=== PATIENT | female | born 1970 | race African-American/Black ===

== ENCOUNTER 2018-06-21 17:16 | Inpatient (IN) | payer OTHER ==
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
[2018-06-21] MEDS ORDERED: MAGNESIUM CITRATE 300 ML BOTTLE PO PRN (21:14)
[2018-06-21] MEDS ORDERED: MAG HYDROX/AL HYDROX/SIMETH 30 ML UNIT-DOSE CUP PO PRN (21:14)
[2018-06-21] MEDS ORDERED: P-EPHED 60MG/TRIPROLIDI 2.5MG TABLET PO PRN (21:14)
[2018-06-21] MEDS ORDERED: guaiFENesin 200 MG/10 ML 10 ML UNIT-DOSE CUPS PO PRN (21:14)
[2018-06-21] MEDS ORDERED: hydrOXYzine PAMOATE 25 MG CAPSULE (FP) PO PRN (21:14)
[2018-06-21] MEDS ORDERED: MAGNESIUM HYDROX 2400MG/30ML ORAL SUSPENSION 30 ML CUP PO PRN (21:14)
[2018-06-21] MEDS ORDERED: LOPERAMIDE HCL 2 MG CAPSULE PO PRN (21:14)
[2018-06-21] MEDS ORDERED: ACETAMINOPHEN 325 MG TABLET (FP) PO PRN (21:14)
[2018-06-21] MEDS ORDERED: MENTHOL/PHENOL 1 EACH UD MM PRN (21:14)
[2018-06-21] MEDS ORDERED: IBUPROFEN 400 MG TABLET (FP) PO PRN (21:14)
[2018-06-21] MEDS ORDERED: MELATONIN 5 MG TABLETS PO PRN (22:00)
[2018-06-21] MEDS ORDERED: TUBERCULIN PPD 5 TU/0.1ML VIAL ID ONE (23:11)
[2018-06-21] MEDS: THIAMINE HCL 100 MG TABLET (FP) PO SCH (23:14)
[2018-06-22] MEDS: NICOTINE POLACRILEX 2 MG GUM BC PRN ×3 (08:02→17:26)
[2018-06-22] MEDS: PRENATAL VITAMINS W/ FOLIC ACID TABLET (FP) PO SCH (10:21)
[2018-06-22] MEDS: NICOTINE 14 MG/24 HOURS TOPICAL PATCH TD SCH (10:21)
--- NOTE | 2018-06-22 10:46 | CONSULT ---
[facility] Psychiatric Consult - Data Date of interview: 05/22/18 Admission source: [facility] Identifying data: Patient is a 47 year old female, but separted, unemployed, domiciled, and is supported by [employer]. This is patient's first admission to rehab at [facility]. Patient admitted to for marijuana and cocaine dependence. Substance Abuse History: Smoking Cessation. Smoking history: Current every day smoker. Have you smoked in the past 12 months: Yes. Aproximately how many cigarettes per day: 15. Hx Chewing Tobacco Use: No. Initiated information on smoking cessation: Yes. 'Breaking Loose' booklet given: 06/21/18. - Substance & Tx. History. Hx Alcohol Use: No. Hx Substance Use: Yes. Substance Use Type : Cocaine, Marijuana. Hx Substance Use Treatment: Yes (Last rehab [facility] 2011). - Substances abused. Crack. Substance route: Smoking. Frequency: Daily. Amount used: $60. Age of first use: 13 (using $60 per day for the past year ). Date of last use: 06/20/18. Marijuana/Hashish. Substance route: Smoking. Frequency: Daily. Amount used: $20. Age of first use: 13. Date of last use : 06/21/18 Medical History: Seizures, HIV, anemia, hypertension Psychiatric History: Patient's first psychiatric contact was in her 30's after she was admitted to [facility] for suicidal ideation. Patient is a poor historian and is unable to provide a cohesive psychiatric history. Ms. Latif reports h/o four five psychiatric hospitalizations, most recently ten years ago for depression at [facility]. States 4/5 hospitalizations occured at [facility]. Ms. Latif is receiving outpatient psychiatric care at "[facility]". She is unable to recall her psychotropic medications. Collaterol information obtained with patient's consent. Write able to speak to Larisa (patient's nurse) and was informed that patient is followed by the ACT Team and is provided with outpatient psychiatric care at " [facility]". As per Larisa, patient is prescribed Invega sustenna 117mg monthly. She received her Invega Sustenna on 06/21/18 before admitting self to [facility] rehab unit. Diagnosis of schizoaffective disorder. At present, patient denies auditory and visual halluincations. No manic, depressive, or psychotic symptoms noted, although patient is irritable and reports sleeping poorly last night. Physical/Sexual Abuse/Trauma History: denies. Mental Status Exam - Mental Status Exam Alert and Oriented to: Time, Place, Person Cognitive Function: Fair Patient Appearance: Unkempt Mood: Irritable Affect: Mood Congruent Patient Behavior: Appropriate Speech Pattern: Appropriate Voice Loudness: Normal Thought Process: Goal Oriented Thought Disorder: Not Present Hallucinations: Denies Suicidal Ideation: Denies Homicidal Ideation: Denies Insight/Judgement: Poor Sleep: Poorly Appetite: Fair Muscle strength/Tone: Normal Gait/Station: Other (Patient ambulates with a wheelchair) Psychiatric Findings - Problem List ([place] 1, 2,3) (1) Schizoaffective disorder Current Visit: Yes Status: Chronic (2) Cannabis dependence Current Visit: Yes Status: Acute (3) Cocaine dependence Current Visit: Yes Status: Acute (4) Nicotine dependence Current Visit: Yes Status: Acute Qualifiers: Nicotine product type: cigarettes - Initial Treatment Plan Initial Treatment Plan: Psychoeducation provided. Rehab in progress. [employer]iler able to contact patient's patient's pharmacy at and able to speak to the pharmacist. As per pharmacist patient is prescribed Invega sustenna 117mg montly + Gabapentin 300mg TID (script given 06/08)+ Cogentin 1mg BID ( script given 06/08). Patient has received risperdal 2mg and mirtzapine 15mg in the past (last script for risperdal and mirtzapine were on 04/10). Bo[employer] Pump Oiler able to contact Larisa (patient's nurse) at and was informed that patient received her Invega Sustenna on 06/21/18. Will order Gabapentin 300mg TID + Cogentine 1mg BID.
[2018-06-22 11:35] LABS: EPI CELLS 8.3 /HPF (0-5); PH,URINE 6.5 (5.0-8.0); URINE APPEARANCE CLOUDY; URINE BACTERIA 174.1 /hpf (NEGATIVE); URINE BILIRUBIN NEGATIVE (NEGATIVE); URINE CASTS 4 /hpf (0-8); URINE COLOR YELLOW; URINE GLUCOSE (UA) NEGATIVE (NEGATIVE); URINE KETONE TRACE (NEGATIVE); URINE LEUK ESTERASE 2+ (NEGATIVE); URINE NITRITE NEGATIVE (NEGATIVE); URINE PROTEIN 1+ (NEGATIVE); URINE RBC 1 /hpf (0-4); URINE WBC 11 /hpf (0-5)
[2018-06-22 11:36] LABS: HEMATOCRIT 38.6 % (32.4-45.2); HEMOGLOBIN 12.9 GM/dL (10.7-15.3); MCH 30.8 pg (25.7-33.7); MCHC 33.4 g/dl (32.0-36.0); MEAN CELL VOLUME 92.2 fl (80-96); MEAN PLT VOLUME 8.1 fl (7.5-11.1); PLATELET COUNT 336 K/MM3 (134-434); RBC 4.19 M/mm3 (3.60-5.2); RDW 14.1 % (11.6-15.6); WHITE BLOOD COUNT 5.6 K/mm3 (4.0-10.0)
[2018-06-22 11:45] LABS: ALBUMIN 2.8 g/dl (3.4-5.0); ALK PHOS 78 U/L (45-117); ANION GAP 8 MMOL/L (8-16); BILIRUBIN,TOTAL 0.1 mg/dL (0.2-1); BLOOD UREA NITROGEN 12 mg/dL (7-18); CALCIUM 8.6 mg/dL (8.5-10.1); CHLORIDE 114 mmol/L (98-107); CO2 20 mmol/L (21-32); CREATININE 1.2 mg/dL (0.55-1.3); GLUCOSE,RANDOM 108 mg/dL (74-106); POTASSIUM 3.2 mmol/L (3.5-5.1); SGOT/AST 45 U/L (15-37); SGPT/ALT 24 U/L (13-61); SODIUM 143 mmol/L (136-145); TOT PROT 7.1 g/dl (6.4-8.2)
[2018-06-22 12:23] LABS: URINE CRYSTALS CALCIUM OXALATE SEN /hpf
--- NOTE | 2018-06-22 13:29 | PN ---
[facility] Progress Note Note: Called pharmacy to confirm medications. Patient is not on enalpril, dilantin, Combivir, or Dyazide. Pharmacy confirmed that patient is on Amolodipine, HCTZ 25 mg, Keppra 500 mg BID, Valcyclovir 1,000mg twice ad day, and her HIV regimen is Truvada, Isentress, and Prezista. Patient is also on Respiradal 2mg. Medication orders updated to reflect the information received from the pharmacy.
--- NOTE | 2018-06-22 13:32 | PN ---
[facility] Progress Note (SOAP) Subjective: Patient has elevated BP, Objective: 06/22/18 13:30 Vital Signs - 24 hr 06/21/18 06/22/18 06/22/18 20:00 03:30 06:51 Temperature 96.4 F L 98 F Pulse Rate 86 72 Respiratory 18 16 16 Rate Blood Pressure 128/96 142/99 06/22/18 10:00 Temperature Pulse Rate 73 Respiratory 20 Rate Blood Pressure 153/105 H 06/22/18 13:30 Heart rate regular, S1S2 audible, lungs clear, no neurological deficits. Assessment: 06/22/18 13:31 HTN Plan: Medications confirmed; amlodipine and HCTZ started today, nursing aware.
[2018-06-22] MEDS: GABAPENTIN 300 MG CAPSULE (FP) PO SCH ×2 (13:51→22:10)
[2018-06-22] MEDS: amLODIPine BESYLATE 10 MG TABLET (FP) PO SCH (13:51)
--- NOTE | 2018-06-22 14:46 | EKG ---
Test Reason : Blood Pressure : / mmHG Vent. Rate : 069 BPM Atrial Rate : 069 BPM P-R Int : 160 ms QRS Dur : 094 ms QT Int : 458 ms P-R-T Axes : 010 062 057 degrees QTc Int : 490 ms NORMAL SINUS RHYTHM SEPTAL INFARCT , AGE UNDETERMINED ABNORMAL ECG NO PREVIOUS ECGS AVAILABLE Confirmed by Pola Hammonds ([id number]) on 06/22/2018 2:45:50 PM Referred By: Confirmed By:Pola Hammonds
[2018-06-22] MEDS: THIAMINE HCL 100 MG TABLET (FP) PO SCH (22:10)
[2018-06-22] MEDS: BENZTROPINE MESYLATE 1 MG TABLET (FP) PO SCH (22:11)
[2018-06-22] MEDS: valACYclovir HCL 500 MG TABLET (FP) PO SCH (22:11)
[2018-06-22] MEDS: levETIRAcetam 500 MG TABLET (FP) PO SCH (22:11)
[2018-06-23] MEDS: GABAPENTIN 300 MG CAPSULE (FP) PO SCH ×3 (07:09→23:13)
[2018-06-23] MEDS: NICOTINE POLACRILEX 2 MG GUM BC PRN (10:55)
[2018-06-23] MEDS: NICOTINE 14 MG/24 HOURS TOPICAL PATCH TD SCH (10:55)
[2018-06-23] MEDS: valACYclovir HCL 500 MG TABLET (FP) PO SCH ×2 (10:55→23:13)
[2018-06-23] MEDS: amLODIPine BESYLATE 10 MG TABLET (FP) PO SCH (10:55)
[2018-06-23] MEDS: HYDROCHLOROTHIAZIDE 25 MG TABLET (FP) PO SCH (10:55)
[2018-06-23] MEDS: levETIRAcetam 500 MG TABLET (FP) PO SCH ×2 (10:55→23:13)
[2018-06-23] MEDS: BENZTROPINE MESYLATE 1 MG TABLET (FP) PO SCH ×2 (10:55→23:14)
[2018-06-23] MEDS: PRENATAL VITAMINS W/ FOLIC ACID TABLET (FP) PO SCH (10:55)
--- NOTE | 2018-06-23 15:29 | PN ---
S Progress Note Note: Client reports that she has not taken her HIV medications for at least 2 months. Advised client to see her HIV specialist upon discharge to re-start HIV medications.
[2018-06-23] MEDS ORDERED: POTASSIUM CHLORIDE ORAL LIQUID 20 MEQ/15 ML PO SCH (22:00)
[2018-06-23] MEDS: THIAMINE HCL 100 MG TABLET (FP) PO SCH (23:15)
[2018-06-23] MEDS: POTASSIUM CHLORIDE ORAL LIQUID 20 MEQ/15 ML PO SCH (23:16)
[2018-06-23] MEDS ORDERED: PT OWN MED DRAWER 7, Y5N ONE (23:17)
[2018-06-24] MEDS: GABAPENTIN 300 MG CAPSULE (FP) PO SCH ×3 (06:57→21:46)
[2018-06-24] MEDS: NICOTINE POLACRILEX 2 MG GUM BC PRN ×3 (06:57→13:58)
[2018-06-24] MEDS ORDERED: PT OWN MED DRAWER 7, Y5N ONE (08:56)
[2018-06-24] MEDS: amLODIPine BESYLATE 10 MG TABLET (FP) PO SCH (10:47)
[2018-06-24] MEDS: PRENATAL VITAMINS W/ FOLIC ACID TABLET (FP) PO SCH (10:47)
[2018-06-24] MEDS: levETIRAcetam 500 MG TABLET (FP) PO SCH ×2 (10:47→21:46)
[2018-06-24] MEDS: valACYclovir HCL 500 MG TABLET (FP) PO SCH ×2 (10:48→21:46)
[2018-06-24] MEDS: BENZTROPINE MESYLATE 1 MG TABLET (FP) PO SCH ×2 (10:48→21:46)
[2018-06-24] MEDS: POTASSIUM CHLORIDE ORAL LIQUID 20 MEQ/15 ML PO SCH ×2 (10:48→21:47)
[2018-06-24] MEDS: HYDROCHLOROTHIAZIDE 25 MG TABLET (FP) PO SCH (10:48)
[2018-06-24] MEDS: NICOTINE 14 MG/24 HOURS TOPICAL PATCH TD SCH (10:49)
[2018-06-24] MEDS: THIAMINE HCL 100 MG TABLET (FP) PO SCH (21:46)
[2018-06-25] MEDS: GABAPENTIN 300 MG CAPSULE (FP) PO SCH ×3 (07:43→22:15)
[2018-06-25] MEDS: NICOTINE POLACRILEX 2 MG GUM BC PRN ×2 (07:45→14:36)
[2018-06-25] MEDS: valACYclovir HCL 500 MG TABLET (FP) PO SCH ×2 (11:10→22:15)
[2018-06-25] MEDS: amLODIPine BESYLATE 10 MG TABLET (FP) PO SCH (11:10)
[2018-06-25] MEDS: HYDROCHLOROTHIAZIDE 25 MG TABLET (FP) PO SCH (11:10)
[2018-06-25] MEDS: NICOTINE 14 MG/24 HOURS TOPICAL PATCH TD SCH (11:10)
[2018-06-25] MEDS: PRENATAL VITAMINS W/ FOLIC ACID TABLET (FP) PO SCH (11:10)
[2018-06-25] MEDS: levETIRAcetam 500 MG TABLET (FP) PO SCH ×2 (11:11→22:16)
[2018-06-25] MEDS: BENZTROPINE MESYLATE 1 MG TABLET (FP) PO SCH ×2 (11:11→22:15)
[2018-06-25] MEDS: THIAMINE HCL 100 MG TABLET (FP) PO SCH (22:15)
[2018-06-26] MEDS: GABAPENTIN 300 MG CAPSULE (FP) PO SCH ×2 (07:59→14:02)
[2018-06-26] MEDS ORDERED: levETIRAcetam 500 MG TABLET (FP) PO ONE (09:06)
--- NOTE | 2018-06-26 09:06 | PN ---
[facility] Progress Note Note: Patient with sub-therapeutic keppra level; 7.5L.She was admitted on 06/21, noted to be non-compliant with medication while she was in the community. This accounts for low serum level of keppra. Patient is currently taking medication as ordered, levels potentially to reach therapeutic level. Plan Give extra dose of keppra 500mg x 1 Continue 500mg BID Repeat level on 07/01
[2018-06-26] MEDS: PRENATAL VITAMINS W/ FOLIC ACID TABLET (FP) PO SCH (09:12)
[2018-06-26] MEDS: HYDROCHLOROTHIAZIDE 25 MG TABLET (FP) PO SCH (09:12)
[2018-06-26] MEDS: valACYclovir HCL 500 MG TABLET (FP) PO SCH (09:12)
[2018-06-26] MEDS: levETIRAcetam 500 MG TABLET (FP) PO SCH (09:12)
[2018-06-26] MEDS: BENZTROPINE MESYLATE 1 MG TABLET (FP) PO SCH (09:12)
[2018-06-26] MEDS: amLODIPine BESYLATE 10 MG TABLET (FP) PO SCH (09:12)
[2018-06-26] MEDS: NICOTINE 14 MG/24 HOURS TOPICAL PATCH TD SCH (09:13)
[2018-06-26] MEDS ORDERED: LORazepam 2 MG/ML SDV VIAL ONE (12:28)
--- NOTE | 2018-06-26 12:40 | PN ---
[facility] Progress Note Note: Rapid response called s/p pt having numerous seizures. Arrived to see pt alert but post-ictal, no signs of injury, breathing unlabored. Pt had another seizure episode when this provider arrived to unit (TOTAL - 4). FS -96mg/dl, Bp -143/81, HR- 89. T - 97.9F, O2 sat - 96%. Ativan 1mg given. Pt will be transferred to [facility] ED, report given to Dr Saeed. Nursing staff aware.
--- NOTE | 2018-06-26 13:03 | PN ---
S Progress Note Note: Patient is referred for multiple seizure activities-(6) Last episode while EMS personal present and taking vital signs. Seizures 5 mns apart, lasts approximately 30 seconds, no incontinence or loss of consciousness. Patient with diagnosis of seizure disorder, non-compliant with medication. She received 1000mg of Keppra this morning. Vital Signs Period Temp Pulse Resp BP Sys/[place] Pulse Ox Last 24 Hr 97.3 F 72-78 16-18 113-136/68-91 PE Alert to self, responsive, follows simple command, reports thirst. Lungs CTA, no dyspnea Plan-Transfer to ED for further evaluation Ativan 1mg IM given
[2018-06-26 13:51] VITALS: BP 143/81; PULSE 84; TEMP 97.8
== END 2018-06-26 23:01 | disposition short-term general hospital (02) | DRG 772 ==
LOC: YASAS 17:16 → Y3E 22:09
PROVIDERS: ADMIT Neuromusculoskeletal Medicine & OMM; ATTEND Neuromusculoskeletal Medicine & OMM
PROC: HZ42ZZZ Group Counseling for Substance Abuse Treatment, Cognitive-Behavioral (ICD-10-PCS; principal; 2018-06-21)
DX: F14.20 Cocaine dependence, uncomplicated (principal); F12.20 Cannabis dependence, uncomplicated; F17.210 Nicotine dependence, cigarettes, uncomplicated; F25.9 Schizoaffective disorder, unspecified; F32.9 Major depressive disorder, single episode, unspecified; F03.90 Unspecified dementia, unspecified severity, without behavioral disturbance, psychotic disturbance, mood disturbance, and anxiety; Z21 Asymptomatic human immunodeficiency virus [HIV] infection status; I10 Essential (primary) hypertension; D64.9 Anemia, unspecified; G40.909 Epilepsy, unspecified, not intractable, without status epilepticus; Z91.14 Patient's other noncompliance with medication regimen; S80.212A Abrasion, left knee, initial encounter; S80.211A Abrasion, right knee, initial encounter; W18.39XA Other fall on same level, initial encounter; Y93.89 Activity, other specified; Y92.488 Other paved roadways as the place of occurrence of the external cause; Y99.8 Other external cause status
CPT/HCPCS: 36415; 80053; 80177; 81003; 82962; 85027; 86593; 93005; 93010

== ENCOUNTER 2018-06-26 13:27 | Observation (INO) | payer OTHER ==
[2018-06-26 13:45] VITALS: BMI 24.7
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
[2018-06-26 14:58] LABS: BASO % 1.1 % (0-2.0); EOS % 2.6 % (0-4.5); HEMATOCRIT 37.6 % (32.4-45.2); HEMOGLOBIN 12.7 GM/dL (10.7-15.3); LYMPH % 25.2 % (8-40); MCH 30.6 pg (25.7-33.7); MCHC 33.7 g/dl (32.0-36.0); MEAN PLT VOLUME 7.3 fl (7.5-11.1); NEUT % 61.1 % (42.8-82.8); PLATELET COUNT 317 K/MM3 (134-434); RBC 4.14 M/mm3 (3.60-5.2); RDW 13.9 % (11.6-15.6); WHITE BLOOD COUNT 6.7 K/mm3 (4.0-10.0)
--- NOTE | 2018-06-26 15:01 | PDOC ---
Attending Attestation - HPI HPI: The patient is a 47 year old female, with a significant PMH of HIV, seizure disorder (controlled on Keppra), HTN, depression, dementia, anemia, and neuropathy, who presents to the emergency department today BIBEMS s/p 5 tonic clonic seizures today. As per EMS, patient has had 5 witnessed seizures throughout the day, with diffuse body shaking. They report that she was given Ativan from [facility] prior to their arrival, and her seizures subsided after administering Versed.Patient reports weakness in bilateral upper and lower extremities. Patient denies falls or head contusions during the episodes. She also endorses 2 episodes of NBNB vomit yesterday, with residual nausea today. The patient denies chest pain, shortness of breath, headache and dizziness. Denies fever, chills, diarrhea and constipation. Denies dysuria, frequency, urgency and hematuria. Allergies: NKA Past surgical history: Bilateral feet orthopedic surgery, left knee surgery, and right inguinal hernia repair Social history: Patient reports using marijuana and cocaine one week ago. Denies EtOH use. PCP: Dr. Macey Leo 06/26/18 16:52 - Physicial Exam PE: GENERAL: +Lethargic. Awake, alerted, and oriented. The patient is in no acute distress. HEAD: Normal with no signs of trauma. EYES: PERRLA, EOMI, sclera anicteric, conjunctiva clear. ENT: +Small laceration to the left lateral lower lip. Ears normal, nares patent , oropharynx clear without exudates. Moist mucous membranes. NECK: Normal range of motion, supple without lymphadenopathy, JVD, or masses. LUNGS: Breath sounds equal, clear to auscultation bilaterally. No wheezes, and no crackles. HEART:Regular rate and rhythm, normal S1 and S2 without murmur, rub or gallop. ABDOMEN: Soft, nontender, normoactive bowel sounds. No guarding, no rebound. No masses palpable. EXTREMITIES: Normal range of motion, no edema. No clubbing or cyanosis. No erythema, or tenderness. NEUROLOGICAL: +Lethargic. Cranial nerves II through XII grossly intact. Normal speech. No focal neurological deficits. MUSCULOSKELETAL: Back non-tender to palpation, no CVA tenderness SKIN: Warm, Dry, normal turgor, no rashes or lesions noted. 06/26/18 16:52 - Medical Decision Making EXAM#: TYPE/EXAM: RESULT: [id number] CT/HEAD CT WITHOUT CONTRAST Change in mental status. Headaches. IMPRESSION: [id number] volume loss without CT evidence of acute intracranial pathology. Left sphenoid chronic sinusitis. Reported By: Francisco Javier Freeman MD 06/26/18 15:59 Documentation prepared by SYLVIE Boss, acting as medical communication specialist for Maria D Saeed MD. 06/26/18 16:26 <Lillian Patterson - Last Filed: 06/26/18 16:52> - Resident Resident Name: Jones Bishop - ED Attending Attestation I have performed the following: I have examined & evaluated the patient, The case was reviewed & discussed with the resident, I agree w/resident's findings & plan, Exceptions are as noted - Medical Decision Making 06/26/18 17:21 EKG - Twelve-lead EKG was performed and reviewed by me. There is normal sinus rhythm with a normal rate. The axis is normal. The intervals are normal. There are no ST or T wave abnormalities. Impression: Normal twelve-lead EKG 47 yo F presenting to the ER due to seizure Pt reportedly had seizure x 4 in the Detox center and 1 seizure en route to the ER Given Ativan and Versed Pt post ictal initially Pt awake now Will do labs Will plan to admit 06/26/18 17:32 Laboratory Tests 06/26/18 06/26/18 06/26/18 14:45 14:45 14:45 WBC 6.7 Hgb 12.7 Hct 37.6 Plt Count 317 INR 0.89 BUN 20 H Creatinine 0.9 Ammonia Creatine Kinase 72 Troponin I < 0.02 06/26/18 14:45 WBC Hgb Hct Plt Count INR BUN Creatinine Ammonia 17.00 Creatine Kinase Troponin I ? Status epilepticus Will plan to admit Can be returned to [facility] once stable <Maria D Saeed - Last Filed: 06/30/18 13:57>
[2018-06-26 15:12] LABS: INR 0.89 (0.83-1.09); PROTHROMBIN TIME (PATIENT) 10.5 SEC (9.7-13.0)
[2018-06-26 15:13] LABS: ALBUMIN 2.6 g/dl (3.4-5.0); ALK PHOS 76 U/L (45-117); ANION GAP 5 MMOL/L (8-16); BILIRUBIN,TOTAL 0.1 mg/dL (0.2-1); BLOOD UREA NITROGEN 20 mg/dL (7-18); CALCIUM 8.9 mg/dL (8.5-10.1); CHLORIDE 110 mmol/L (98-107); CO2 24 mmol/L (21-32); CREATININE 0.9 mg/dL (0.55-1.3); GLUCOSE,RANDOM 97 mg/dL (74-106); SGOT/AST 26 U/L (15-37); SGPT/ALT 22 U/L (13-61); SODIUM 139 mmol/L (136-145); TOT PROT 6.8 g/dl (6.4-8.2)
[2018-06-26] MEDS ORDERED: levETIRAcetam 500 MG/5 ML INJECTION VIAL IVPB ONE ×2 (16:50→16:57)
[2018-06-26 18:22] LABS: COCAINE, UR NEGATIVE ng/ml (CUTOFF=300); METHADONE, UR NEGATIVE ng/ml (CUTOFF=300); OPIATES, URI NEGATIVE ng/ml (CUTOFF=300); PHENCYCLIDINE,URINE NEGATIVE ng/ml (CUTOFF=25); URINE AMPHETAMINES NEGATIVE ng/ml (CUTOFF=500); URINE BARBITURATES NEGATIVE ng/ml (CUTOFF=200)
[2018-06-26 18:24] LABS: URINE BENZODIAZEPINES POSITIVE ng/ml (CUTOFF=200)
--- NOTE | 2018-06-26 18:40 | HP ---
CHIEF COMPLAINT: PCP: HISTORY OF PRESENT ILLNESS: ER course was notable for: (1) (2) (3) Recent Travel: PAST MEDICAL HISTORY: PAST SURGICAL HISTORY: Social History: Smoking: Alcohol: Drugs: Family History: Allergies No Known Allergies Allergy (Verified 06/21/18 21:56) HOME MEDICATIONS: Home Medications Medication Instructions Recorded SEROquel 200 mg PO HS 07/24/11 Enalapril Maleate [Vasotec -] 10 mg PO DAILY #0 tablet 08/19/11 Enalapril Maleate [Vasotec -] 20 mg PO BID #0 tablet 08/19/11 Fluconazole [Diflucan -] 100 mg PO DAILY #0 tablet 08/19/11 Hctz 25Mg/Triamterene [Dyazide 1 cap PO DAILY #0 capsule 08/19/11 25/37.5 -] Lamivudine/Zidovudine 150/300 1 combo PO BID #0 tablet 08/19/11 [Combivir Tablet 150/300 -] Norvir 100 mg PO DAILY #0 08/19/11 Phenytoin Sodium Extended 100 mg PO QID #0 capsule 08/19/11 [Dilantin] Valacyclovir HCl [Valacyclovir] 500 mg PO BID #0 tablet 08/19/11 Benztropine Mesylate [Cogentin -] 1 mg PO BID 06/22/18 Gabapentin [Neurontin -] 300 mg PO TID 06/22/18 REVIEW OF SYSTEMS CONSTITUTIONAL: Absent: fever, chills, diaphoresis, generalized weakness, malaise, loss of appetite, weight change HEENT: Absent: rhinorrhea, nasal congestion, throat pain, throat swelling, difficulty swallowing, mouth swelling, ear pain, eye pain, visual changes CARDIOVASCULAR: Absent: chest pain, syncope, palpitations, irregular heart rate, lightheadedness , peripheral edema RESPIRATORY: Absent: cough, shortness of breath, dyspnea with exertion, orthopnea, wheezing, stridor, hemoptysis GASTROINTESTINAL: Absent: abdominal pain, abdominal distension, nausea, vomiting, diarrhea, constipation, melena, hematochezia GENITOURINARY: Absent: dysuria, frequency, urgency, hesitancy, hematuria, flank pain, genital pain MUSCULOSKELETAL: Absent: myalgia, arthralgia, joint swelling, back pain, neck pain SKIN: Absent: rash, itching, pallor HEMATOLOGIC/IMMUNOLOGIC: Absent: easy bleeding, easy bruising, lymphadenopathy, frequent infections ENDOCRINE: Absent: unexplained weight gain, unexplained weight loss, heat intolerance, cold intolerance NEUROLOGIC: Absent: headache, focal weakness or paresthesias, dizziness, unsteady gait, seizure, mental status changes, bladder or bowel incontinence PSYCHIATRIC: Absent: anxiety, depression, suicidal or homicidal ideation, hallucinations. PHYSICAL EXAMINATION Vital Signs 06/26/18 13:34 Temperature 99.1 F Pulse Rate 74 Respiratory 18 Rate Blood Pressure 115/80 O2 Sat by Pulse 97 Oximetry (%) GENERAL: NAD, awake, alert, and fully oriented HEENT: NC/AT, MARIE, EOMI, sclera anicteric, abraision to L lower lip noted healing w/o signs of infection, no thrush or other plaques noted in oropharynx, no mucosal ulcerations, MMM NECK: No JVD LUNGS: CTA bilaterally. No wheezes, and no crackles. No accessory muscle use. HEART: RRR, normal S1 and S2 without murmur ABDOMEN: Soft, NT/ND, normoactive bowel sounds, no guarding, no rebound MUSCULOSKELETAL: No CVA tenderness. No spinal TTP EXTREMITIES: 2+ DP, pulses, warm, well-perfused. No calf tenderness. No peripheral edema. abrasions to b/l knees healing at this point w/o infections NEUROLOGICAL: customer services manager II-XII intact. No nystagmus. Strength 5/5 bilaterally throughout upper and lower extremity beck. Sensation intact to both dull and sharp touch in b/l extremities. Normal speech. Gait not observed PSYCHIATRIC: Cooperative. Good eye contact. Appropriate mood and affect. SKIN: Warm, dry,no rashes, abrasions as above, Laboratory Results 06/26/18 06/26/18 06/26/18 14:45 14:45 14:45 WBC 6.7 RBC 4.14 Hgb 12.7 Hct 37.6 MCV 91.0 MCH 30.6 MCHC 33.7 RDW 13.9 Plt Count 317 MPV 7.3 L Absolute Neuts (auto) 4.1 Neutrophils % 61.1 Lymphocytes % 25.2 Monocytes % 10.0 Eosinophils % 2.6 Basophils % 1.1 Nucleated RBC % 0 PT with INR 10.50 INR 0.89 Sodium 139 Potassium 4.0 Chloride 110 H Carbon Dioxide 24 Anion Gap 5 L BUN 20 H Creatinine 0.9 Creat Clearance w eGFR 66.55 Random Glucose 97 Lactic Acid Calcium 8.9 Total Bilirubin 0.1 L AST 26 ALT 22 Alkaline Phosphatase 76 Ammonia Creatine Kinase 72 Troponin I < 0.02 Total Protein 6.8 Albumin 2.6 L Opiates Screen Methadone Screen Barbiturate Screen Phencyclidine Screen Ur Amphetamines Screen MDMA (Ecstasy) Screen Benzodiazepines Screen Cocaine Screen U Marijuana (THC) Screen Blood Type Antibody Screen 06/26/18 06/26/18 06/26/18 14:45 14:45 15:07 WBC RBC Hgb Hct MCV MCH MCHC RDW Plt Count MPV Absolute Neuts (auto) Neutrophils % Lymphocytes % Monocytes % Eosinophils % Basophils % Nucleated RBC % PT with INR INR Sodium Potassium Chloride Carbon Dioxide Anion Gap BUN Creatinine Creat Clearance w eGFR Random Glucose Lactic Acid 1.0 Calcium Total Bilirubin AST ALT Alkaline Phosphatase Ammonia 17.00 Creatine Kinase Troponin I Total Protein Albumin Opiates Screen Methadone Screen Barbiturate Screen Phencyclidine Screen Ur Amphetamines Screen MDMA (Ecstasy) Screen Benzodiazepines Screen Cocaine Screen U Marijuana (THC) Screen Blood Type O POSITIVE Antibody Screen Negative 06/26/18 17:49 WBC RBC Hgb Hct MCV MCH MCHC RDW Plt Count MPV Absolute Neuts (auto) Neutrophils % Lymphocytes % Monocytes % Eosinophils % Basophils % Nucleated RBC % PT with INR INR Sodium Potassium Chloride Carbon Dioxide Anion Gap BUN Creatinine Creat Clearance w eGFR Random Glucose Lactic Acid Calcium Total Bilirubin AST ALT Alkaline Phosphatase Ammonia Creatine Kinase Troponin I Total Protein Albumin Opiates Screen Negative Methadone Screen Negative Barbiturate Screen Negative Phencyclidine Screen Negative Ur Amphetamines Screen Negative MDMA (Ecstasy) Screen Negative Benzodiazepines Screen Positive A* Cocaine Screen Negative U Marijuana (THC) Screen Negative Blood Type Antibody Screen ASSESSMENT/PLAN: ? tonic-clonic seizure with known seizure history Polysubstance abuse HIV HTN Schizoaffective disorder --Given CK of 72 and LA of 1.0 unsure if true seizures --Head CT reviewed: w/o acute abnormalities --Will place in observation for 24hr monitoring --Seizure precautions in place --Keppra load (1g) in ED; continue 500mg BID dosing --Keppra level in AM --Consult neurology re: possible MRI vs. EEG vs. observation on home regiment --Based on [facility] notes, will monitor for withdrawal signs --Utox only positive for Benzodiazepines (given today at [facility] and EMS en route) --Continue HCTZ 25mg daily and Norvasc 10mg daily for HTN --Well controlled currently --Continue Gabapentin 200mg TID for neuropathy symptoms --Reports she takes her medications everyday, pharmacy closed --Will order Truvada, Isentress, and Prezista 600mg BID PO as per her HIV regiment --Nicotine patch 14 daily ordered --Melatonin PRN ordered --Based on psychiatry consult at [facility] will start Risperidone 2mg daily and Cogentin 1mg BID FEN: Fluids: None indicated Electrolyte abnormalities: None Nutrition: Regular diet PPX: DVT - Low risk Dispo: Place in observation Case discussed with Dr. Brittni Mojica, DO - IM PGY-2
[2018-06-26 18:43] LABS: URINE APPEARANCE CLEAR; URINE BILIRUBIN NEGATIVE (NEGATIVE); URINE COLOR YELLOW; URINE GLUCOSE (UA) NEGATIVE (NEGATIVE); URINE KETONE NEGATIVE (NEGATIVE); URINE LEUK ESTERASE NEGATIVE (NEGATIVE); URINE NITRITE NEGATIVE (NEGATIVE); URINE PROTEIN NEGATIVE (NEGATIVE); URINE UROBILINOGEN 0.2 mg/dL (0.2-1.0)
[2018-06-26] MEDS ORDERED: MELATONIN 5 MG TABLETS PO PRN (18:43)
--- NOTE | 2018-06-26 19:22 | PN ---
Teaching Attending Note Name of Resident: Russ Mojica ATTENDING PHYSICIAN STATEMENT I saw and evaluated the patient. I reviewed the resident's note and discussed the case with the resident. I agree with the resident's findings and plan as documented. SUBJECTIVE: CC: seizures HPI: 47 y/o lady with h/o seizure disorder, schizoaffective Do, depression, psych hospitalizations in past, HTN,HIV on HAART, polysubstance abuse, who presented with seizures from [facility] . she reports having seizures, she felt them coming, she reports she was unconscious but was told she had seizures. it is not clear, per report from ER and per [facility] notes she had a seizure while at the table, then had another one . seizure subsided when EMS gave versed. ativan was given at [facility]. she says has a seizure once a week . she insists she takes dilantin, but per [facility] notes, her meds were confirmed withher pharmacy and keppra was the only seizure medication. she denies having a neurologist and her HIV Md prescribes her meds. she denies any fever or chills. has no ALEXANDRE, no weakness, no tingling, has o dysuria, or diarrhea, no abd apin, no PC or SOB. she reports falling a week ago sliding form her wheel chair. she can't walk due to L knee Fx. ( a year ago). OBJECTIVE: NAD, awake, alert, not very cooperative. HEENT : poor dentition, many missing teeth, MMM, no facial droop. no LAP in neck . scar on L upper lip Cv: RRR, 2/6 SM at base . Abd:soft , NT, ND , NL BS . patient refused rest of exam claiming she could not move. ASSESSMENT AND PLAN: 47 y/o lady with h/o seizure disorder, schizoaffective Do, depression, psych hospitalizations in past, HTN ,HIV on HAART, polysubstance abuse, who presented with seizures from [facility] . 1- Seizures: por historian and little details were collected, but apparently she had at least 2 seizures. ? real vs pseudoseisures - questionable compliance as her keppra level was low on 06/23 - loaded with Keppra in the ER at 5 pm - will resume her po keppra 500 BID in am - neuro consult - further Recs. - no signs of infection 2- HIV: she reports being compliant with HIV meds and mentioned the names correctly - resume Isentress, truvada, Acyclovir, prezista. 3- HTN: cont norvasc and HCTZ. 4- Polysubstance abuse: no signs of withdrawal. per [facility] records , she was not being givenany specific treatment . 5- Schizoaffective disorder. cont respirdal and cogentin she received her Invega on 06/21 ( monthly ) dispo ; observe pending neuro consult
[2018-06-26] MEDS ORDERED: valACYclovir HCL 500 MG TABLET (FP) PO SCH (22:00)
[2018-06-26] MEDS ORDERED: levETIRAcetam 500 MG TABLET (FP) PO SCH (22:00)
[2018-06-26] MEDS: RALTEGRAVIR POTASSIUM 400 MG TAB PO SCH (22:57)
[2018-06-26] MEDS: GABAPENTIN 300 MG CAPSULE (FP) PO SCH (22:57)
[2018-06-26] MEDS: BENZTROPINE MESYLATE 1 MG TABLET (FP) PO SCH (22:57)
[2018-06-26] MEDS: valACYclovir HCL 1000 MG TABLET PO SCH (22:57)
[2018-06-27] MEDS ORDERED: GABAPENTIN 100 MG CAPSULE (FP) ONE (06:49)
[2018-06-27] MEDS: GABAPENTIN 300 MG CAPSULE (FP) PO SCH ×3 (07:01→21:59)
[2018-06-27] MEDS: EMTRICITABINE 200MG/TENOFOVIR 300MG PO SCH (09:50)
[2018-06-27] MEDS: valACYclovir HCL 1000 MG TABLET PO SCH ×2 (09:50→22:00)
[2018-06-27] MEDS: DARUNAVIR ETHANOLATE 600 MG TAB PO SCH ×2 (09:50→17:14)
[2018-06-27] MEDS: BENZTROPINE MESYLATE 1 MG TABLET (FP) PO SCH ×2 (09:50→22:01)
[2018-06-27] MEDS: RALTEGRAVIR POTASSIUM 400 MG TAB PO SCH ×2 (09:50→22:00)
[2018-06-27] MEDS: amLODIPine BESYLATE 10 MG TABLET (FP) PO SCH (09:50)
[2018-06-27] MEDS: HYDROCHLOROTHIAZIDE 25 MG TABLET (FP) PO SCH (09:50)
[2018-06-27] MEDS ORDERED: levETIRAcetam 500 MG TABLET (FP) PO SCH (10:00)
[2018-06-27] MEDS ORDERED: NICOTINE 14 MG/24 HOURS TOPICAL PATCH TD SCH (10:00)
[2018-06-27] MEDS ORDERED: risperiDONE 2 MG TABLET PO SCH (10:00)
--- NOTE | 2018-06-27 14:24 | PN ---
Progress Note (short form) - Note Progress Note: Subjective: declined exam and interview. wants to go back [facility] [place] Objective: Vital Signs: Last Vital Signs Temp Pulse Resp BP Pulse Ox 98.2 F 62 17 125/81 98 06/27/18 09:36 06/27/18 09:36 06/27/18 09:36 06/27/18 09:36 06/27/18 11:06 Laboratory Results - last 24 hr 06/26/18 06/26/18 06/26/18 14:45 14:45 14:45 WBC 6.7 RBC 4.14 Hgb 12.7 Hct 37.6 MCV 91.0 MCH 30.6 MCHC 33.7 RDW 13.9 Plt Count 317 MPV 7.3 L Absolute Neuts (auto) 4.1 Neutrophils % 61.1 Lymphocytes % 25.2 Monocytes % 10.0 Eosinophils % 2.6 Basophils % 1.1 Nucleated RBC % 0 PT with INR 10.50 INR 0.89 Sodium 139 Potassium 4.0 Chloride 110 H Carbon Dioxide 24 Anion Gap 5 L BUN 20 H Creatinine 0.9 Creat Clearance w eGFR 66.55 Random Glucose 97 Lactic Acid Calcium 8.9 Total Bilirubin 0.1 L AST 26 ALT 22 Alkaline Phosphatase 76 Ammonia Creatine Kinase 72 Troponin I < 0.02 Total Protein 6.8 Albumin 2.6 L Urine Color Urine Appearance Urine pH Ur Specific [place] Urine Protein Urine Glucose (UA) Urine Ketones Urine Blood Urine Nitrite Urine Bilirubin Urine Urobilinogen Ur Leukocyte Esterase Opiates Screen Methadone Screen Barbiturate Screen Phencyclidine Screen Ur Amphetamines Screen MDMA (Ecstasy) Screen Benzodiazepines Screen Cocaine Screen U Marijuana (THC) Screen Blood Type Antibody Screen 06/26/18 06/26/18 06/26/18 14:45 14:45 15:07 WBC RBC Hgb Hct MCV MCH MCHC RDW Plt Count MPV Absolute Neuts (auto) Neutrophils % Lymphocytes % Monocytes % Eosinophils % Basophils % Nucleated RBC % PT with INR INR Sodium Potassium Chloride Carbon Dioxide Anion Gap BUN Creatinine Creat Clearance w eGFR Random Glucose Lactic Acid 1.0 Calcium Total Bilirubin AST ALT Alkaline Phosphatase Ammonia 17.00 Creatine Kinase Troponin I Total Protein Albumin Urine Color Urine Appearance Urine pH Ur Specific [place] Urine Protein Urine Glucose (UA) Urine Ketones Urine Blood Urine Nitrite Urine Bilirubin Urine Urobilinogen Ur Leukocyte Esterase Opiates Screen Methadone Screen Barbiturate Screen Phencyclidine Screen Ur Amphetamines Screen MDMA (Ecstasy) Screen Benzodiazepines Screen Cocaine Screen U Marijuana (THC) Screen Blood Type O POSITIVE Antibody Screen Negative 06/26/18 06/26/18 17:49 17:49 WBC RBC Hgb Hct MCV MCH MCHC RDW Plt Count MPV Absolute Neuts (auto) Neutrophils % Lymphocytes % Monocytes % Eosinophils % Basophils % Nucleated RBC % PT with INR INR Sodium Potassium Chloride Carbon Dioxide Anion Gap BUN Creatinine Creat Clearance w eGFR Random Glucose Lactic Acid Calcium Total Bilirubin AST ALT Alkaline Phosphatase Ammonia Creatine Kinase Troponin I Total Protein Albumin Urine Color Yellow Urine Appearance Clear Urine pH 7.0 Ur Specific [place] 1.013 Urine Protein Negative Urine Glucose (UA) Negative Urine Ketones Negative Urine Blood Negative Urine Nitrite Negative Urine Bilirubin Negative Urine Urobilinogen 0.2 Ur Leukocyte Esterase Negative Opiates Screen Negative Methadone Screen Negative Barbiturate Screen Negative Phencyclidine Screen Negative Ur Amphetamines Screen Negative MDMA (Ecstasy) Screen Negative Benzodiazepines Screen Positive A* Cocaine Screen Negative U Marijuana (THC) Screen Negative Blood Type Antibody Screen Physical Exam: declined ASSESSMENT AND PLAN: 47 y/o lady with h/o seizure disorder, schizoaffective Do, depression, psych hospitalizations in past, HTN ,HIV on HAART, polysubstance abuse, who presented with seizures from [facility] . 1- Seizures: ? real vs pseudoseisures - questionable compliance as her keppra level was low on 06/23 - neuro called and ordered keppra 750 BID. she will be evaluated tomorrow. - psych consult ordered by neuro. she was evaluated by psych at [facility] 2 days prior to admission 2- HIV: cont Isentress, truvada, Acyclovir, prezista. 3- HTN: cont norvasc and HCTZ. 4- Polysubstance abuse: no signs of withdrawal. 5- Schizoaffective disorder. cont respirdal and cogentin she received her Invega on 06/21 ( monthly ) dispo ; need neuro eval. inmean time she can leave AMA . she is capable of making decisions. she understands that seizures can be deadly Visit type - Emergency Visit Emergency Visit: Yes ED Registration Date: 06/26/18 Care time: The patient presented to the Emergency Department on the above date and was hospitalized for further evaluation of their emergent condition. - New Patient This patient is new to me today: No - Critical Care Critical Care patient: No
[2018-06-27] MEDS: NICOTINE POLACRILEX 2 MG GUM BUC PRN ×2 (15:25→17:15)
[2018-06-27] MEDS ORDERED: PT OWN MED DRAWER 7, Y5N ONE ×3 (17:01→21:55)
--- NOTE | 2018-06-27 18:00 | EKG ---
Test Reason : Blood Pressure : / mmHG Vent. Rate : 071 BPM Atrial Rate : 071 BPM P-R Int : 148 ms QRS Dur : 090 ms QT Int : 430 ms P-R-T Axes : 011 045 040 degrees QTc Int : 467 ms NORMAL SINUS RHYTHM SEPTAL INFARCT (CITED ON OR BEFORE 21-JUN-2018) ABNORMAL ECG WHEN COMPARED WITH ECG OF 21-JUN-2018 22:56, NO SIGNIFICANT CHANGE WAS FOUND Confirmed by JOSIANE HUTCHISON MD ([id number]) on 06/27/2018 6:00:35 PM Referred By: Confirmed By:JOSIANE HUTCHISON MD
[2018-06-27] MEDS: levETIRAcetam 500 MG TABLET (FP) PO SCH (22:00)
[2018-06-28] MEDS: GABAPENTIN 300 MG CAPSULE (FP) PO SCH ×2 (05:28→15:09)
[2018-06-28 06:08] VITALS: PULSE 73; TEMP 98.3
[2018-06-28] MEDS: DARUNAVIR ETHANOLATE 600 MG TAB PO SCH (08:18)
--- NOTE | 2018-06-28 09:52 | CONSULT ---
Consult - text type - Consultation Consultation Note: NEUROLOGY CONSULT APPRECIATED: Patient seen in coverage for Dr. Taylor.. Events reviewed and discussed with LUZ Cloud and NIKOLAI Hernandez. This 47 yo LH single female current at [facility] for detox. Requires wheelchair x 1 year. PMHX includes seizure disorder, HIV, polysubstance abuse, depression, schizoaffective disorder and "neuropathy." Meds: risperidone 2 mg, phenytoin 100 mg QID, enalapril, fluconazole, Dyazide, Combivir, Norvir, Valtrex, benztropine 1 mg BID, gabapentin Admitted by EMS with recurrent tonic-clonic seizures, resolving on Versed. Loaded on keppra 1 gram IVP, now maintained on keppra 750 mg BID. Does not recall how long she has been treated with anti-psych meds or by whom. Head CT (reviewed): Mild-Moderate atrophy. UA neg. Urine tox + benzos. Ammonia 19. albumin 2.6 RICAHRD: Cor reg. No bruit. Neck supple. No evidence of head trauma. Scar to left knee. Cannot fully extend L knee. In diaper. NEURO: Awake, alert, responsive. Cooperative with exam. Oriented [facility]. June 2018. TRUMP. CNII-CNXII: EOM intact. [id number]. Full beck appreciated. Reduced rapid tongue. Gag ok. No facial. Motor: No drift. Posturing of L fingers. Dystonic mov'ts of feet and neck. L KJ absent, but AJ present. Plantars silent. Coordination: No FTN dystaxia. Sensation: Min reduced vibration in toes. Gait refused by patient Impression: 1. Seizure Disorder, type uncertain 2. Neuroleptic-induced Parkinsonism 3. Peripheral Neuropathy (contributions from HIV or HAART therapy, nutritional) Suggest: Obtain keppra level, TSH, B12, RPR, Iron studies Start Thiamine 250 mg IVP TID x 3 days Review prior documentation regarding anti-psychiatric therapy ( i.e. provider, duration of therapy) ID and psychiatry consult appreciated PT eval vs. contracture financial services technician eval for possible SNF placement Thank you very much, Feliciano Kay MD
[2018-06-28] MEDS ORDERED: valACYclovir HCL 500 MG TABLET (FP) PO SCH (10:00)
[2018-06-28] MEDS ORDERED: risperiDONE 1 MG TABLET (FP) PO SCH (10:00)
[2018-06-28] MEDS ORDERED: PT OWN MED DRAWER 7, Y5N ONE ×4 (10:02→17:29)
[2018-06-28] MEDS: HYDROCHLOROTHIAZIDE 25 MG TABLET (FP) PO SCH (11:14)
[2018-06-28] MEDS: levETIRAcetam 500 MG TABLET (FP) PO SCH (11:14)
[2018-06-28] MEDS: amLODIPine BESYLATE 10 MG TABLET (FP) PO SCH (11:14)
[2018-06-28] MEDS: BENZTROPINE MESYLATE 1 MG TABLET (FP) PO SCH (11:14)
[2018-06-28] MEDS: RALTEGRAVIR POTASSIUM 400 MG TAB PO SCH (11:17)
[2018-06-28] MEDS: EMTRICITABINE 200MG/TENOFOVIR 300MG PO SCH (11:17)
[2018-06-28] MEDS: NICOTINE POLACRILEX 2 MG GUM BUC PRN ×2 (11:31→16:32)
[2018-06-28] MEDS ORDERED: THIAMINE HCL 200 MG/2 ML VIAL IVPB SCH (14:00)
--- NOTE | 2018-06-28 14:10 | CON.PSY ---
Psychiatry Consult Chief Complaint: 47 year pld female with a lomg history of SChizophrenia and chronic Substance abuse admitted from Rehab following a dominickguillermomargaret Kassieamanda on Psych ,meds. Patient lives in [place] and goes to a local clinic. - Previous Psychiatric Treatment Outpatient: Less than 6 mos ago Inpatient: 2 or more prior admissions - Previous Substance Abuse Treatment Outpatient: Less than 6 mos ago Inpatient: One prior admission - Reason for Previous Treatment Reason for Previous Treatment: Psychotic Episode, Drug Abuse, Marijuana, Cocaine - Current Medications Current Medications: Active Medications Amlodipine Besylate (Norvasc -) 10 mg PO DAILY [facility] Last Admin: 06/28/18 11:14 Dose: 10 mg Benztropine Mesylate (Cogentin -) 1 mg PO BID [facility] Last Admin: 06/28/18 11:14 Dose: 1 mg Darunavir (Prezista -) 600 mg PO BIDWM [facility] Last Admin: 06/28/18 08:18 Dose: 600 mg Emtricitabine/Tenofovir (Truvada) 1 tab PO DAILY [facility] Last Admin: 06/28/18 11:17 Dose: 1 tab Gabapentin (Neurontin -) 300 mg PO TID [facility] Last Admin: 06/28/18 05:28 Dose: 300 mg Hydrochlorothiazide (Hctz -) 25 mg PO DAILY [facility] Last Admin: 06/28/18 11:14 Dose: 25 mg Levetiracetam (Keppra -) 750 mg PO BID [facility] Last Admin: 06/28/18 11:14 Dose: 750 mg Nicotine Polacrilex (Nicorette Gum -) 2 mg BUC Q2H PRN PRN Reason: NICOTINE REPLACEMENT RX Last Admin: 06/28/18 11:31 Dose: 2 mg Raltegravir (Isentress -) 400 mg PO BID [facility] Last Admin: 06/28/18 11:17 Dose: 400 mg Risperidone (Risperdal -) 2 mg PO DAILY [facility] Last Admin: 06/28/18 11:14 Dose: 2 mg Thiamine HCl (Vitamin B1 Injection -) 250 mg IVPB TID [facility] Stop: 07/01/18 13:59 Valacyclovir HCl (Valtrex -) 1,000 mg PO BID [facility] Last Admin: 06/28/18 11:14 Dose: 1,000 mg - Allergies Allergies: Allergies Allergy/AdvReac Type Severity Reaction Status Date / Time No Known Allergies Allergy Verified 06/26/18 19:38 - Current Living Status Usual Living Arrangement: Alone - Current Mental Status Evaluation Appearance: Disheveled Attitude: Cooperative - Affect Affect: Constrictive Appropriateness: Appropriate to Content - Mood Mood: Euthymic - Speech/Language Expressive: Coherent - Psychomotor Activity Psychomotor Activity: Normal - Thought Process Thought Process: Intact - Thought Content Hallucinations: Absent Delusions: Absent - Self Perception Self Perception: No Impairment - Cognition Attention: Alert Orientation: Time Memory, Short Term: 2/3 Memory, Remote with Promptin/3 - Concentration Serial Sevens Intact: No Simple Calculations Intact: Yes - Abstraction Proverb Interpretation: Intact Judgement: Minimally Impaired - Insight Insight: Intact - Impulse Control Impulse Control: Minimally Impaired - Suicidal Ideation Suicidal Ideation: No - Homicidal Ideation Homicidal Ideation: No Assessment/Plan 1) Continue with present Psych Meds. 2) Will follow up with MH clinic in the [place].
--- NOTE | 2018-06-28 15:02 | PN ---
Teaching Attending Note Name of Resident: Ilana Crisostomo ATTENDING PHYSICIAN STATEMENT I saw and evaluated the patient. I reviewed the resident's note and discussed the case with the resident. I agree with the resident's findings and plan as documented. SUBJECTIVE: No fever or chills . No ALEXANDRE , no pain,no SOB, OBJECTIVE: NAd Cv: RRR Lungs: CTAB Ext : no edema . L knee deformity and surgical scar with a scab Neuro: limited. no facial droop, EOMI, tongue at mid line, round equal pupils, strength 5/5 in upper extremities, proximally and distally. RLE with 4/5 hip flexion and knee extension. not cooperative with rest of exam . ASSESSMENT AND PLAN: 47 y/o lady with h/o seizure disorder, schizoaffective Do, depression, psych hospitalizations in past, HTN ,HIV on HAART, polysubstance abuse, who presented with seizures from [facility] . 1- Seizures: - cont keppra 750 BID - neuro eval after dc -case d/w neuro by news internship, although IV thiamine was recommended, it was not really necessary and patient can be discharged 2- HIV: cont Isentress, truvada, Acyclovir, prezista. 3- HTN: cont norvasc and HCTZ. 4- Polysubstance abuse: no signs of withdrawal. 5- Schizoaffective disorder. cont respirdal and cogentin she received her Invega on 06/21 ( monthly ) dispo ; dc back to [facility] . patient insists to [facility]
[2018-06-28 15:52] VITALS: BP 112/72
--- NOTE | 2018-06-28 16:17 | DS ---
Physical Exam: SUBJECTIVE: Patient seen and examined at bedside this morning. No acute events overnight but patient remains to be combative as per nursing. She otherwise has no complaints. No fever, chills, chest pain, shortness of breath, nausea, vomiting, abdominal pain, or urinary symptoms. No episode of seizures since admission. OBJECTIVE: Vital Signs Temperature 98.3 F 06/28/18 09:00 Pulse Rate 73 06/28/18 09:00 Respiratory Rate 18 06/28/18 09:00 Blood Pressure 112/72 06/28/18 09:00 O2 Sat by Pulse Oximetry (%) 98 06/28/18 09:00 PHYSICAL EXAM GENERAL: The patient is awake, alert, and fully oriented, in no acute distress. HEAD: Normal with no signs of trauma. EYES: PERRLA, EOMI, sclera anicteric, conjunctiva clear. NECK: Trachea midline, full range of motion, supple. LUNGS: Breath sounds equal, clear to auscultation bilaterally. HEART: Regular rate and rhythm, S1, S2 without murmur, rub or gallop. ABDOMEN: Soft, nontender, nondistended, normoactive bowel sounds. EXTREMITIES: 2+ pulses, warm, well-perfused, no edema. SKIN: Warm, dry, normal turgor, no rashes or lesions noted. LABS CBC, BMP 06/26/18 14:45 06/26/18 14:[address] scan - mild to moderatae volume loss without CT evidence of acute intracranial pathology. Left sphenoid chronic sinusitis. HOSPITAL COURSE: Date of Admission:06/26/18 Date of Discharge: 06/28/18 Patient is a 47 year old female with past medical history of seizure disorder, schizoaffective disorder, depression, psych hospitalizations in the past, HTN, HIV on HAART, polysubstance abuse, was sent in from [facility] for episodes of seizures. Upon arrival at the ED, patient was noted to have a low Keppra level a few days back, and was loaded with Keppra IV. She was then started on PO Keppra with increased dose of 750mg BID. Patient was evaluated by neurology and Psychiatry who recommended to continue current medications and to follow up as outpatient. Patient remained asymptomatic throughout her hospital stay and subsequently was sent back to [facility] for continued rehab. Minutes to complete discharge: 35 Discharge Summary Reason For Visit: RECURRENT SEIZURES Current Active Problems Recurrent seizures (Acute) Condition: Improved - Instructions Diet, Activity, Other Instructions: Your visit You were admitted to the hospital because you had an episode of seizure at [facility]. Head CAT scan was done which was negative of any concerns. You were evaluated by the neurologist and recommended that you take your seizure medications as prescribed. You were also seen evaluated by a psychiatrist who recommended to continue taking your medications and follow-up at the clinic at the [facility]. Medications Please take Keppra 750mg twice a day. Continue your other home medications as prescribed. Follow-up Please follow up with the neurologist Dr. Kay within 1 week. Please follow up with your psychiatrist at the [facility] within 1 week. Please follow up with your primary care physician. Please call the resident medical clinic at [facility] to schedule an appointment with Dr. Vital. Additional info Call 911 or go the ED if with any worsening fever, chills, headache, seizure, dizziness, nausea, vomiting, chest pain, shortness of breath, belly pain, bloody stools or any new concerns noted. Referrals: [facility] [place] [Provider Group] Feliciano Kay MD [Staff Physician] - 2 Weeks Disposition: TRANSFER ACUTE CARE/OTHER HOSP - Home Medications Comprehensive Discharge Medication List: Ambulatory Orders Benztropine Mesylate [Cogentin -] 1 mg PO BID 06/22/18 Gabapentin [Neurontin -] 300 mg PO TID 06/22/18 Amlodipine Besylate [Norvasc -] 10 mg PO DAILY 06/26/18 Darunavir Ethanolate [Prezista -] 600 mg PO BID 06/26/18 Emtricitabine/Tenofovir [Truvada -] 1 tab PO DAILY 06/26/18 Hydrochlorothiazide [Hctz -] 25 mg PO DAILY 06/26/18 Melatonin 5 mg PO HS PRN 06/26/18 Paliperidone Palmitate [Invega Sustenna] 117 mg IM MONTHLY 06/26/18 Raltegravir [Isentress] 400 mg PO BID 06/26/18 Risperidone [Risperdal -] 2 mg PO DAILY 06/26/18 Valacyclovir HCl [Valtrex -] 1,000 mg PO BID 06/26/18 Nicotine Patch [Nicoderm Patch -] 14 mg TD DAILY patch 06/28/18 Thiamine HCl [B-1] 100 mg PO DAILY #30 tablet 06/28/18 levETIRAcetam [Keppra -] 750 mg PO BID tablet 06/28/18 This patient is new to me today: Yes Date on this admission: 06/28/18 Emergency Visit: Yes ED Registration Date: 06/26/18 Care time: The patient presented to the Emergency Department on the above date and was hospitalized for further evaluation of their emergent condition. Critical Care patient: No - Discharge Referral Referred to [facility] Med P.C.: No
== END 2018-06-28 17:43 | disposition other institution (70) ==
LOC: JER 13:27 → JERBED 16:58 → J6S 06-27 10:19
PROVIDERS: ADMIT Internal Medicine; ATTEND Internal Medicine
PROC: 3E033GC Introduction of Other Therapeutic Substance into Peripheral Vein, Percutaneous Approach (ICD-10-PCS; principal; 2018-06-26)
DX: G40.89 Other seizures (principal); I10 Essential (primary) hypertension; F19.10 Other psychoactive substance abuse, uncomplicated; F25.9 Schizoaffective disorder, unspecified; F32.9 Major depressive disorder, single episode, unspecified; D64.9 Anemia, unspecified; B20 Human immunodeficiency virus [HIV] disease; G62.9 Polyneuropathy, unspecified; F03.90 Unspecified dementia, unspecified severity, without behavioral disturbance, psychotic disturbance, mood disturbance, and anxiety; Z87.891 Personal history of nicotine dependence; Z99.3 Dependence on wheelchair
CPT/HCPCS: 36415; 70450-TC; 71045-TC-FY; 80053; 80307; 81003; 82140; 82550; 83605; 84484; 85025; 85610; 86850; 86900; 86901; 93005; 93010; 96374; 96375; 99285-25; G0378; J2794

== ENCOUNTER 2018-06-28 18:04 | Inpatient (IN) | payer OTHER ==
[2018-06-28 19:09] VITALS: BMI 24.7
--- NOTE | 2018-06-28 19:49 | HP ---
LISBETH VENTURA Rehab Assess/Revision - Admission History Admitted to Rehab from: Medical/Surgical Date of Admission to Rehab: 06/28/2018 - Vital signs Vital Signs: Vital Signs Period Temp Pulse Resp BP Sys/Cortez Pulse Ox Last 24 Hr 98.2 F 82 16 100/72 - Findings Detox History & Physical reviewed: Yes (Substance use hx:Marijuana and cocaine use disorder. Nicotine use disorder) Concur with findings: Yes Comments/Additional Findings: Hosptial admission treatment and discharge summary reviewed. Patient will return to rehab and continue w/ prior medications. Patient encouraged compliance w/ Keppra and alll meds. Patient encouraged to f/u w/ PCP upon discharge. PMHx: HIV, seizures, HTN, hx (L) leg fx - resulting in difficulty walking Inpatient Rehab Admission - Rehab Decision to Admit Inpatient rehab admission?: Yes - Initial Determination Are CD services needed?: Yes Free of communicable disease: Yes Not in need of hospitalization: Yes - Rehab Admission Criteria Previous failed treatment: Yes Poor recovery environment: Yes Comorbidities: Yes Lacks judgement: No Patient is meeting Inpatient Rehab admission criteria:: Yes
[2018-06-28] MEDS ORDERED: ACETAMINOPHEN 325 MG TABLET (FP) PO PRN (19:57)
[2018-06-28] MEDS ORDERED: LOPERAMIDE HCL 2 MG CAPSULE PO PRN (19:57)
[2018-06-28] MEDS ORDERED: IBUPROFEN 400 MG TABLET (FP) PO PRN (19:57)
[2018-06-28] MEDS ORDERED: MAGNESIUM CITRATE 300 ML BOTTLE PO PRN (19:57)
[2018-06-28] MEDS ORDERED: MAG HYDROX/AL HYDROX/SIMETH 30 ML UNIT-DOSE CUP PO PRN (19:57)
[2018-06-28] MEDS ORDERED: MENTHOL/PHENOL 1 EACH UD MM PRN (19:57)
[2018-06-28] MEDS ORDERED: MAGNESIUM HYDROX 2400MG/30ML ORAL SUSPENSION 30 ML CUP PO PRN (19:57)
[2018-06-28] MEDS ORDERED: guaiFENesin 200 MG/10 ML 10 ML UNIT-DOSE CUPS PO PRN (19:57)
[2018-06-28] MEDS: valACYclovir HCL 500 MG TABLET (FP) PO SCH (21:42)
[2018-06-28] MEDS: MELATONIN 5 MG TABLETS PO PRN (21:43)
[2018-06-28] MEDS: PHENYTOIN NA EXTENDED 100 MG CAPSULE (FP) PO SCH (21:43)
[2018-06-28] MEDS: hydrOXYzine PAMOATE 25 MG CAPSULE (FP) PO PRN (21:43)
[2018-06-28] MEDS: THIAMINE HCL 100 MG TABLET (FP) PO SCH (21:44)
[2018-06-28] MEDS: levETIRAcetam 500 MG TABLET (FP) PO SCH (21:44)
[2018-06-29] MEDS: PHENYTOIN NA EXTENDED 100 MG CAPSULE (FP) PO SCH ×3 (08:03→21:34)
[2018-06-29] MEDS: NICOTINE POLACRILEX 2 MG GUM BUC PRN ×3 (08:05→21:37)
--- NOTE | 2018-06-29 10:15 | CONSULT ---
[facility] Psychiatric Consult - Data Date of interview: 06/29/18 Admission source: [facility] Identifying data: Patient is a 47 year old female, but , unemployed, domiciled, and is supported by [employer]. This is patient's first admission to rehab at [facility]. Patient admitted to for marijuana and cocaine dependence. Substance Abuse History: Smoking Cessation. Smoking history: Current every day smoker. Have you smoked in the past 12 months: Yes. Aproximately how many cigarettes per day: 15. Hx Chewing Tobacco Use: No. Initiated information on smoking cessation: Yes. 'Breaking Loose' booklet given: 06/21/18. - Substance & Tx. History. Hx Alcohol Use: No. Hx Substance Use: Yes. Substance Use Type : Cocaine, Marijuana. Hx Substance Use Treatment: Yes (Last rehab [facility] 2011). - Substances abused. Crack. Substance route: Smoking. Frequency: Daily. Amount used: $60. Age of first use: 13 (using $60 per day for the past year ). Date of last use: 06/20/18. Marijuana/Hashish. Substance route: Smoking. Frequency: Daily. Amount used: $20. Age of first use: 13. Date of last use : 06/21/18 Medical History: Seizures, HIV, anemia, hypertension Psychiatric History: Patient seen by caption writer on 06/22/18 during her initial admission to . Today, patient presents as irritable as she states that her glasses and bible are not in her current belongings since returning from [facility]. Patient was sent out on 06/26/18 after having multiple seizures....Psychiatric history: Patient is a poor historian and information will be extracted from initial consultation on 06/22/18. Patient's first psychiatric contact was in her 30's after she was admitted to [facility] for suicidal ideation. Patient is a poor historian and is unable to provide a cohesive psychiatric history. Ms. Latif reports h/o four-five psychiatric hospitalizations, most recently ten years ago for depression at [facility]. States 4/5 hospitalizations occured at [facility]. Ms. Latif is receiving outpatient psychiatric care at "[facility]". She is unable to recall her psychotropic medications. Collaterol information obtained with patient's consent. Medical Management Trainer able to speak to Larisa (patient's nurse) and was informed that patient is followed by the ACT Team and is provided with outpatient psychiatric care at " [facility]". As per Larisa, patient is prescribed Invega sustenna 117mg monthly. She received her Invega Sustenna on 06/21/18 before admitting self to [facility] rehab unit. Diagnosis of schizoaffective disorder. At present, patient denies auditory and visual halluincations. No manic, depressive, or psychotic symptoms noted. Physical/Sexual Abuse/Trauma History: denies. Mental Status Exam - Mental Status Exam Alert and Oriented to: Time, Place, Person Cognitive Function: Fair Patient Appearance: Well Groomed Mood: Irritable Affect: Mood Congruent Patient Behavior: Agitated (slighly agitated.) Speech Pattern: Delayed Voice Loudness: Moderately Soft/Quiet Thought Process: Goal Oriented Thought Disorder: Not Present Hallucinations: Denies Suicidal Ideation: Denies Homicidal Ideation: Denies Insight/Judgement: Poor Sleep: Fair Appetite: Fair Muscle strength/Tone: Normal Gait/Station: Other Psychiatric Findings - Problem List (Clare 1, 2,3) (1) Cannabis dependence Status: Chronic (2) Cocaine dependence Status: Chronic Qualifiers: Substance use status: uncomplicated Qualified Code(s): F14.20 - Cocaine dependence, uncomplicated (3) Nicotine dependence Status: Chronic Qualifiers: Nicotine product type: cigarettes Substance use status: uncomplicated Qualified Code(s): F17.210 - Nicotine dependence, cigarettes, uncomplicated (4) Schizoaffective disorder Status: Chronic - Initial Treatment Plan Initial Treatment Plan: Psychoeducation provided. Detoxification in progress. Will continue gabapentin 300mg TID + Cogentin 1mg BID. Invega sustenna 117mg received on 06/21/18 (confirmed by ACT team LUZ Peres ([phone]). Benenfits and side effects discussed. Verbal consent given.
[2018-06-29] MEDS: PRENATAL VITAMINS W/ FOLIC ACID TABLET (FP) PO SCH (10:46)
[2018-06-29] MEDS: levETIRAcetam 500 MG TABLET (FP) PO SCH ×2 (10:46→21:34)
[2018-06-29] MEDS: valACYclovir HCL 500 MG TABLET (FP) PO SCH ×2 (10:47→21:34)
[2018-06-29] MEDS: amLODIPine BESYLATE 10 MG TABLET (FP) PO SCH (10:49)
[2018-06-29] MEDS: HYDROCHLOROTHIAZIDE 25 MG TABLET (FP) PO SCH (10:49)
[2018-06-29] MEDS: BENZTROPINE MESYLATE 1 MG TABLET (FP) PO SCH ×2 (12:10→21:35)
[2018-06-29] MEDS: GABAPENTIN 300 MG CAPSULE (FP) PO SCH ×2 (14:09→21:35)
--- NOTE | 2018-06-29 16:17 | PN ---
[facility] Progress Note Note: Vital Signs Temperature 97.6 F 06/29/18 07:24 Pulse Rate 73 06/29/18 10:00 Respiratory Rate 16 06/29/18 10:00 Blood Pressure 99/64 06/29/18 10:00 O2 Sat by Pulse Oximetry (%) Call received from pharmacy re: patient HAART therapy is missing norvir to regime, patient has all other meds prezista, truvada, isentress.
[2018-06-29] MEDS: THIAMINE HCL 100 MG TABLET (FP) PO SCH (21:35)
[2018-06-29] MEDS: MELATONIN 5 MG TABLETS PO PRN (21:36)
[2018-06-30] MEDS: PHENYTOIN NA EXTENDED 100 MG CAPSULE (FP) PO SCH ×3 (06:44→21:32)
[2018-06-30] MEDS: GABAPENTIN 300 MG CAPSULE (FP) PO SCH ×3 (06:44→21:32)
[2018-06-30] MEDS: HYDROCHLOROTHIAZIDE 25 MG TABLET (FP) PO SCH (10:36)
[2018-06-30] MEDS: amLODIPine BESYLATE 10 MG TABLET (FP) PO SCH (10:36)
[2018-06-30] MEDS: BENZTROPINE MESYLATE 1 MG TABLET (FP) PO SCH ×2 (10:36→21:32)
[2018-06-30] MEDS: PRENATAL VITAMINS W/ FOLIC ACID TABLET (FP) PO SCH (10:36)
[2018-06-30] MEDS: valACYclovir HCL 500 MG TABLET (FP) PO SCH ×2 (10:36→21:32)
[2018-06-30] MEDS: levETIRAcetam 500 MG TABLET (FP) PO SCH ×2 (10:37→21:33)
[2018-06-30] MEDS: NICOTINE POLACRILEX 2 MG GUM BUC PRN (12:13)
--- NOTE | 2018-06-30 14:33 | PN ---
[facility] Progress Note Note: Patient has a hx of HIV infection. However, it is not clear if she has been taking her ART regimen and if so, the last time she took medication. Client states that her medications are in her possessions downstairs, but refused to go downstairs with the assistant manager quality management to retrieve them so that the pharmacist could verify them. In addition, her regimen appears to be either (a) incomplete and needing the addition of norvr to boost the prezista or (b) the prezista may have been discontinued by her HIV provider and replaced with isentress or (c) she is on a regimen to cover a resistant virus. We are unable to determine the reason for his regimen at this time. I am in agreement with the pharmacist and will discontinue the orders for HIV medication until confirmation of her regimen and verification of her medications can be done.
[2018-06-30] MEDS: DARUNAVIR ETHANOLATE PO SCH ×2 (14:44→14:46)
[2018-06-30] MEDS: PATIENT'S OWN MEDICATION (NON-FORMULARY) (Raltegravir [Isentress] 400 MG) PO SCH ×2 (14:45→14:47)
[2018-06-30] MEDS: PATIENT'S OWN MEDICATION (NON-FORMULARY) (Emtricitabine/Tenofovir [Truvada -] 1 TAB) PO SCH ×2 (14:46→14:48)
[2018-06-30] MEDS: THIAMINE HCL 100 MG TABLET (FP) PO SCH (21:31)
[2018-07-01] MEDS: DARUNAVIR ETHANOLATE PO SCH ×2 (01:05→01:08)
[2018-07-01] MEDS: PATIENT'S OWN MEDICATION (NON-FORMULARY) (Raltegravir [Isentress] 400 MG) PO SCH ×2 (01:05→01:08)
[2018-07-01] MEDS: GABAPENTIN 300 MG CAPSULE (FP) PO SCH ×3 (08:24→21:13)
[2018-07-01] MEDS: PHENYTOIN NA EXTENDED 100 MG CAPSULE (FP) PO SCH ×3 (08:24→21:12)
[2018-07-01] MEDS: NICOTINE POLACRILEX 2 MG GUM BUC PRN ×2 (08:25→12:24)
[2018-07-01] MEDS: BENZTROPINE MESYLATE 1 MG TABLET (FP) PO SCH ×2 (10:22→21:12)
[2018-07-01] MEDS: amLODIPine BESYLATE 10 MG TABLET (FP) PO SCH (10:22)
[2018-07-01] MEDS: PRENATAL VITAMINS W/ FOLIC ACID TABLET (FP) PO SCH (10:22)
[2018-07-01] MEDS: levETIRAcetam 500 MG TABLET (FP) PO SCH ×2 (10:22→21:15)
[2018-07-01] MEDS: HYDROCHLOROTHIAZIDE 25 MG TABLET (FP) PO SCH (10:22)
[2018-07-01] MEDS: valACYclovir HCL 500 MG TABLET (FP) PO SCH ×2 (10:22→21:12)
[2018-07-01] MEDS: hydrOXYzine PAMOATE 25 MG CAPSULE (FP) PO PRN (21:12)
[2018-07-01] MEDS: THIAMINE HCL 100 MG TABLET (FP) PO SCH (21:12)
[2018-07-02] MEDS: PHENYTOIN NA EXTENDED 100 MG CAPSULE (FP) PO SCH ×3 (06:42→21:07)
[2018-07-02] MEDS: GABAPENTIN 300 MG CAPSULE (FP) PO SCH ×3 (06:42→21:07)
[2018-07-02] MEDS: NICOTINE POLACRILEX 2 MG GUM BUC PRN ×3 (06:44→21:10)
[2018-07-02] MEDS: PRENATAL VITAMINS W/ FOLIC ACID TABLET (FP) PO SCH (10:21)
[2018-07-02] MEDS: amLODIPine BESYLATE 10 MG TABLET (FP) PO SCH (10:21)
[2018-07-02] MEDS: HYDROCHLOROTHIAZIDE 25 MG TABLET (FP) PO SCH (10:21)
[2018-07-02] MEDS: levETIRAcetam 500 MG TABLET (FP) PO SCH ×2 (10:22→21:06)
[2018-07-02] MEDS: valACYclovir HCL 500 MG TABLET (FP) PO SCH ×2 (10:22→21:07)
[2018-07-02] MEDS: BENZTROPINE MESYLATE 1 MG TABLET (FP) PO SCH ×2 (10:22→21:08)
[2018-07-02] MEDS: THIAMINE HCL 100 MG TABLET (FP) PO SCH (21:06)
[2018-07-03] MEDS: PHENYTOIN NA EXTENDED 100 MG CAPSULE (FP) PO SCH ×3 (07:54→21:29)
[2018-07-03] MEDS: GABAPENTIN 300 MG CAPSULE (FP) PO SCH ×3 (07:54→21:29)
[2018-07-03] MEDS: BENZTROPINE MESYLATE 1 MG TABLET (FP) PO SCH ×2 (09:33→21:29)
[2018-07-03] MEDS: levETIRAcetam 500 MG TABLET (FP) PO SCH ×2 (09:33→21:30)
[2018-07-03] MEDS: HYDROCHLOROTHIAZIDE 25 MG TABLET (FP) PO SCH (09:33)
[2018-07-03] MEDS: amLODIPine BESYLATE 10 MG TABLET (FP) PO SCH (09:33)
[2018-07-03] MEDS: NICOTINE POLACRILEX 2 MG GUM BUC PRN ×2 (09:34→12:31)
[2018-07-03] MEDS: valACYclovir HCL 500 MG TABLET (FP) PO SCH ×2 (09:34→21:29)
[2018-07-03] MEDS: PRENATAL VITAMINS W/ FOLIC ACID TABLET (FP) PO SCH (09:34)
[2018-07-03] MEDS: THIAMINE HCL 100 MG TABLET (FP) PO SCH (21:29)
[2018-07-04] MEDS: PHENYTOIN NA EXTENDED 100 MG CAPSULE (FP) PO SCH ×3 (07:59→21:29)
[2018-07-04] MEDS: GABAPENTIN 300 MG CAPSULE (FP) PO SCH ×3 (08:00→21:27)
[2018-07-04] MEDS ORDERED: PT OWN MED DRAWER 7, Y5N ONE ×2 (08:45→21:29)
[2018-07-04] MEDS: BENZTROPINE MESYLATE 1 MG TABLET (FP) PO SCH ×2 (10:25→21:27)
[2018-07-04] MEDS: HYDROCHLOROTHIAZIDE 25 MG TABLET (FP) PO SCH (10:25)
[2018-07-04] MEDS: PRENATAL VITAMINS W/ FOLIC ACID TABLET (FP) PO SCH (10:25)
[2018-07-04] MEDS: amLODIPine BESYLATE 10 MG TABLET (FP) PO SCH (10:26)
[2018-07-04] MEDS: levETIRAcetam 500 MG TABLET (FP) PO SCH ×2 (10:26→21:28)
[2018-07-04] MEDS: valACYclovir HCL 500 MG TABLET (FP) PO SCH ×2 (13:30→21:28)
--- NOTE | 2018-07-04 13:55 | PN ---
[facility] Progress Note Note: Patient is scheduled for discharge tomorrow. Scripts for 30 days supply of medications(Cogentin, Gabapentin) will electronically be transmitted to [address] [facility] at [address] [place] [address]
[2018-07-04] MEDS: THIAMINE HCL 100 MG TABLET (FP) PO SCH (21:27)
[2018-07-05] MEDS ORDERED: PT OWN MED DRAWER 7, Y5N ONE (03:19)
[2018-07-05 06:35] VITALS: TEMP 97.6
[2018-07-05] MEDS: GABAPENTIN 300 MG CAPSULE (FP) PO SCH (06:35)
[2018-07-05] MEDS: PHENYTOIN NA EXTENDED 100 MG CAPSULE (FP) PO SCH (06:35)
[2018-07-05] MEDS: BENZTROPINE MESYLATE 1 MG TABLET (FP) PO SCH (09:12)
[2018-07-05] MEDS: PRENATAL VITAMINS W/ FOLIC ACID TABLET (FP) PO SCH (09:12)
[2018-07-05] MEDS: levETIRAcetam 500 MG TABLET (FP) PO SCH (09:12)
[2018-07-05] MEDS: HYDROCHLOROTHIAZIDE 25 MG TABLET (FP) PO SCH (09:12)
[2018-07-05] MEDS: amLODIPine BESYLATE 10 MG TABLET (FP) PO SCH (09:12)
[2018-07-05 09:13] VITALS: BP 128/86; PULSE 77
[2018-07-05] MEDS: valACYclovir HCL 500 MG TABLET (FP) PO SCH (09:13)
[2018-07-05] MEDS: hydrOXYzine PAMOATE 25 MG CAPSULE (FP) PO PRN (09:16)
--- NOTE | 2018-07-05 12:33 | PN ---
[facility] Progress Note Note: PT COMPLETED REHAB AND DISCHARGED TODAY. PT HAS BEEN REFERRED TO THE [facility] ON [address] [place], [place] FOR AFTERCARE. PT AMBULATING WITH WHEELCHAIR AND WILL BE PICKED UP BY TRANSPORTATION PER NURSE CAT THOMAS. PT REPORTS SHE HAS ALL HER MEDICATIONS AND HAS A PCP AT [facility] AND DOES NOT REMEMBER HER DOCTOR'S NAME STATING 'I FORGOT HER NAME". PT IS ALERT O X 3. DENIES S/H/I. PT APPEARED TO BE NONCOMPLIANT WITH ANTIRETROVIRAL. Home Medications Medication Instructions Recorded Amlodipine Besylate [Norvasc -] 10 mg PO DAILY 06/26/18 Darunavir Ethanolate [Prezista -] 600 mg PO BID 06/26/18 Emtricitabine/Tenofovir [Truvada -] 1 tab PO DAILY 06/26/18 Hydrochlorothiazide [Hctz -] 25 mg PO DAILY 06/26/18 Melatonin 5 mg PO HS PRN 06/26/18 Paliperidone Palmitate [Invega 117 mg IM MONTHLY 06/26/18 Sustenna] Raltegravir [Isentress] 400 mg PO BID 06/26/18 Risperidone [Risperdal -] 2 mg PO DAILY 06/26/18 Valacyclovir HCl [Valtrex -] 1,000 mg PO BID 06/26/18 Nicotine Patch [Nicoderm Patch -] 14 mg TD DAILY patch 06/28/18 Phenytoin Na Extended [Dilantin -] 200 mg PO TID 06/28/18 Thiamine HCl [B-1] 100 mg PO DAILY #30 tablet 06/28/18 levETIRAcetam [Keppra -] 750 mg PO BID 06/28/18 Benztropine Mesylate [Cogentin -] 1 mg PO BID #30 tablet 07/04/18 Gabapentin [Neurontin -] 300 mg PO TID #90 capsule 07/04/18 Vital Signs - 24 hr 07/05/18 07/05/18 07/05/18 03:30 06:35 09:12 Temperature 97.6 F Pulse Rate 70 77 Respiratory 18 Rate Blood Pressure 120/80 128/86 NAD MEDICALLY STABLE PLAN:FOLLOW UP WITH CD AFTERCARE RECOMMENDED. FOLLOW UP WITH PCP WITHIN 1 WEEK AFTER DISCHARGE.
== END 2018-07-05 09:20 | disposition home or self-care (01) | DRG 772 ==
LOC: YASAS 18:04 → Y3E 19:50
PROVIDERS: ADMIT Neuromusculoskeletal Medicine & OMM; ATTEND Neuromusculoskeletal Medicine & OMM
PROC: HZ42ZZZ Group Counseling for Substance Abuse Treatment, Cognitive-Behavioral (ICD-10-PCS; principal; 2018-06-28)
DX: F14.20 Cocaine dependence, uncomplicated (principal); F12.20 Cannabis dependence, uncomplicated; F17.210 Nicotine dependence, cigarettes, uncomplicated; F25.9 Schizoaffective disorder, unspecified; Z21 Asymptomatic human immunodeficiency virus [HIV] infection status; I10 Essential (primary) hypertension; M21.962 Unspecified acquired deformity of left lower leg; R26.89 Other abnormalities of gait and mobility; Z99.3 Dependence on wheelchair; Z86.69 Personal history of other diseases of the nervous system and sense organs; Z86.2 Personal history of diseases of the blood and blood-forming organs and certain disorders involving the immune mechanism